=== PATIENT | male | born 1990 | race Caucasian/White ===

== ENCOUNTER 2017-03-13 02:28 | Emergency (ER) | payer MEDICAID ==
[2017-03-13 03:28] LABS: BASOPHIL % 0 % (0-2); PLATELET COUNT 226 x10^3mcL (130-400); RED CELL DISTRIBUTION WIDTH 13.6 % (11.5-14.5)
[2017-03-13 03:34] LABS: CARBON DIOXIDE 24.4 mmol/L (21-32); CHLORIDE SERUM 105 mmol/L (98-107); CREATININE SERUM 1.2 mg/dL (0.7-1.3); GFR1 > 60 mL/min; GLUCOSE SERUM 117 mg/dL (74-106); POTASSIUM SERUM 4.1 mmol/L (3.5-5.1); SODIUM SERUM 141 mmol/L (136-145)
[2017-03-13 03:46] LABS: ALBUMIN 4.3 g/dL (3.4-5.0); ALKALINE PHOSPHATASE 86 U/L (46-116); ALT/SGPT 30 U/L (16-63); AMYLASE 31 U/L (25-115); AST/SGOT 25 U/L (15-37); LIPASE 48 IU/L (73-393); TOTAL PROTEIN, SERUM 7.4 g/dL (6.4-8.2)
[2017-03-13 04:55] VITALS: BP 144/62
== END 2017-03-13 04:55 | disposition home or self-care (01) ==
LOC: ED 02:28
PROVIDERS: Emergency Medicine
DX: R11.10 Vomiting, unspecified (principal)
CPT/HCPCS: J2060; J2405; J7030; Q0092

== ENCOUNTER 2020-06-09 00:55 | Emergency (ER) | payer MEDICAID ==
[~2020-06-09] VITALS: Ht 165.1 cm; Wt 50.8 kg
[2020-06-09 01:08] VITALS: Ht 165.1 cm; Wt 50.8 kg
[2020-06-09 02:28] LABS: BASOPHIL % 0.1 % (0-2); PLATELET COUNT 241 x10^3mcL (130-400); RED CELL DISTRIBUTION WIDTH 13.2 % (11.5-14.5)
[2020-06-09 02:59] LABS: ALBUMIN 4.7 g/dL (3.4-5.0); ALKALINE PHOSPHATASE 108 U/L (46-116); ALT/SGPT 32 U/L (16-63); BILIRUBIN TOTAL 0.87 mg/dL (0.20-1.00); CALCIUM 9.6 mg/dL (8.5-10.1); CREATININE SERUM 1.2 mg/dL (0.7-1.3); GFR1 > 60 mL/min; GLUCOSE SERUM 128 mg/dL (74-106); LIPASE 29 IU/L (73-393)
[2020-06-09 03:10] LABS: CHLORIDE SERUM 105 mmol/L (98-107); POTASSIUM SERUM 4.3 mmol/L (3.5-5.1); SODIUM SERUM 144 mmol/L (136-145)
[2020-06-09 03:11] LABS: CARBON DIOXIDE 24.3 mmol/L (21-32)
[2020-06-09 03:31] LABS: AMYLASE 30 U/L (25-115); AST/SGOT 21 U/L (15-37); TOTAL PROTEIN, SERUM 8.2 g/dL (6.4-8.2)
[2020-06-09 05:07] VITALS: BP 110/86
== END 2020-06-09 05:07 | disposition home or self-care (01) ==
LOC: ED 00:55
PROVIDERS: Emergency Medicine
DX: K21.9 Gastro-esophageal reflux disease without esophagitis (principal)
CPT/HCPCS: C9113; J2405; J2765